=== PATIENT | female | born 1960 | race Caucasian/White ===

== ENCOUNTER → 2016-11-29 | Outpatient (CLI) | payer MEDICARE ==
[~2016-11-29] MED LIST: DULOXETINE HCL60 MG PO; NEURONTIN300 MG PO; SUMATRIPTAN SUC50 M1 PO
== END | disposition home or self-care (01) ==
LOC: MAMMO 08:51
DX: N63 Unspecified lump in breast (principal)

== ENCOUNTER → 2016-12-20 | Outpatient (CLI) | payer MEDICARE | END | disposition home or self-care (01) | LOC: RAD 10:47 | DX: M79.672 Pain in left foot (principal); M79.671 Pain in right foot ==

== ENCOUNTER 2017-01-29 21:26 | Inpatient (IN) | payer MEDICARE ==
[~2017-01-29] VITALS: Ht 165.1 cm; Wt 86.0 kg
[2017-01-29] VITALS (8 sets, daily range): BP systolic 109–188; BP diastolic 66–100
[2017-01-29] MEDS ORDERED: ATENOL PO (21:36)
[2017-01-29 21:48] LABS: BASO % 0.3 % (0.0-1.0); EOS # 0.1 10*3/uL (0.0-0.4); EOS % 1.8 % (1.0-4.0); HEMATOCRIT 41.9 % (37.0-47.0); HEMOGLOBIN 14.2 g/dl (12.0-16.0); LYMPH # 2.1 10*3/uL (1.3-4.4); LYMPH % 31.2 % (27.0-41.0); MEAN CELL VOLUME 81.4 fl (81.0-99.0); MEAN CORPUSCULAR HGB 27.6 pg (27.0-31.0); MEAN CORPUSCULAR HGB CONC 33.9 g/dl (33.0-37.0); MEAN PLATELET VOLUME 10.4 fl (9.6-12.3); MONO # 0.5 10*3/uL (0.1-1.0); MONO % 6.9 % (3.0-9.0); NEUT % 59.7 % (47.0-73.0); PLATELET COUNT AUTOMATED 255 10*3/uL (130-400); RED BLOOD COUNT 5.15 10*6/uL (4.10-5.10); RED CELL DISTRI WIDTH 12.6 % (0-14.5); WHITE BLOOD COUNT 6.7 10*3/uL (4.8-10.8)
[2017-01-29 22:21] LABS: PROTHROMBIN TIME 10.9 SECONDS (9.0-12.4)
[2017-01-29 22:29] LABS: ALBUMIN 3.6 gm/dl (3.1-4.5); ALKALINE PHOSPHATASE 78 U/L (45-117); BILIRUBIN, TOTAL 0.3 mg/dl (0.2-1.0); BUN 14 mg/dl (7-24); CARBON DIOXIDE 27 mmol/L (21-32); CHLORIDE 109 mmol/L (98-107); EST GLOM FILT AFRICAN AMERICAN > 60 ml/min; GLUCOSE 149 mg/dL (65-99); MAGNESIUM 1.7 mg/dL (1.5-2.1); SGOT/AST 16 IU/L (3-35); SGPT/ALT 25 U/L (12-78); SODIUM 144 mmol/L (136-145); TOTAL PROTEIN 6.9 gm/dL (6.4-8.2)
[2017-01-29 22:30] LABS: TROPONIN I < 0.015 ng/ml (<0.045)
[2017-01-29 23:31] LABS: HEMOGLOBIN A1c 5.9 % (4.8-5.6)
[2017-01-30] VITALS: BP 129/78
[2017-01-30 00:30] VITALS: BP 154/84
[2017-01-30] MEDS ORDERED: NEXIUM40 MG PO (01:13)
[2017-01-30] MEDS ORDERED: VITAMIN D400 I1 PO (01:14)
[2017-01-30] MEDS ORDERED: ATENOLOL25 MG PO (01:15)
[2017-01-30] MEDS ORDERED: VITAMIN D32000 UNIT PO (01:18)
[2017-01-30 03:46] LABS: BASO % 0.4 % (0.0-1.0); EOS # 0.1 10*3/uL (0.0-0.4); EOS % 1.6 % (1.0-4.0); HEMATOCRIT 39.3 % (37.0-47.0); LYMPH # 1.5 10*3/uL (1.3-4.4); MEAN CELL VOLUME 82.6 fl (81.0-99.0); MEAN CORPUSCULAR HGB 27.3 pg (27.0-31.0); MEAN CORPUSCULAR HGB CONC 33.1 g/dl (33.0-37.0); MEAN PLATELET VOLUME 10.2 fl (9.6-12.3); MONO # 0.4 10*3/uL (0.1-1.0); MONO % 7.4 % (3.0-9.0); NEUT % 60.4 % (47.0-73.0); PLATELET COUNT AUTOMATED 190 10*3/uL (130-400); RED BLOOD COUNT 4.76 10*6/uL (4.10-5.10); RED CELL DISTRI WIDTH 12.7 % (0-14.5)
[2017-01-30 03:59] LABS: BUN 21 mg/dl (7-24); CARBON DIOXIDE 28 mmol/L (21-32); CHLORIDE 110 mmol/L (98-107); EST GLOM FILT AFRICAN AMERICAN > 60 ml/min; GLUCOSE 106 mg/dL (65-99); MAGNESIUM 1.8 mg/dL (1.5-2.1); POTASSIUM 4.6 mmol/L (3.5-5.1); SODIUM 145 mmol/L (136-145)
[2017-01-30 04:03] LABS: CHOLESTEROL 182 mg/dL (<200); FREE T4 1.12 ng/dl (0.76-1.46); HDL CHOLESTEROL 59 mg/dl (40-60); LDL CHOLESTEROL 110 mg/dL (9-159); PHOSPHOROUS 4.4 mg/dL (2.5-4.9); TRIGLYCERIDES 64 mg/dl (<150); VLDL CHOLESTEROL 13 mg/dL (6-40)
[2017-01-30 04:06] LABS: HEMOGLOBIN A1c 6.1 % (4.8-5.6)
[2017-01-30 07:59] LABS: VITAMIN D, 25-HYDROXY 34.1 ng/mL (30-100)
[2017-01-30 08:00] VITALS: BP 140/80
[2017-01-30 08:00] LABS: FOLIC ACID 16.81 ng/mL (>5.38)
[2017-01-30 12:00] VITALS: BP 134/67
[2017-01-30 16:00] VITALS: BP 122/69
[2017-01-30 20:00] VITALS: BP 118/82
[2017-01-31] VITALS: BP 124/78
[2017-01-31 04:00] VITALS: BP 118/76
[2017-01-31 08:00] VITALS: BP 110/58
[2017-01-31 12:00] VITALS: BP 108/64
[2017-01-31 16:00] VITALS: BP 156/82
== END 2017-01-31 17:53 | disposition home or self-care (01) | DRG 392 ==
LOC: ED 21:26 → 4E 01-30 00:09 → EDHOLD 01-30 00:09 → 4E 01-30 00:16
PROVIDERS: Emergency Medicine Emergency Medical Services; Internal Medicine
DX: K21.9 Gastro-esophageal reflux disease without esophagitis (principal); K76.89 Other specified diseases of liver; I10 Essential (primary) hypertension; R07.9 Chest pain, unspecified; R73.9 Hyperglycemia, unspecified; R73.03 Prediabetes; E66.9 Obesity, unspecified; R91.1 Solitary pulmonary nodule; Z87.891 Personal history of nicotine dependence; Z82.49 Family history of ischemic heart disease and other diseases of the circulatory system; Z88.2 Allergy status to sulfonamides; Z79.899 Other long term (current) drug therapy; Z68.32 Body mass index [BMI] 32.0-32.9, adult

== ENCOUNTER → 2017-03-16 | Day surgery (SDC) | payer MEDICARE ==
[~2017-03-16] VITALS: Ht 167.6 cm; Wt 81.6 kg
[~2017-03-16] MED LIST changes: +ATENOL PO; +ATENOLOL25 MG PO; +NEXIUM40 MG PO; +VITAMIN D32000 UNIT PO; +VITAMIN D400 I1 PO
--- NOTE | ~2017-03-16 | O ---
[place], [place] OPERATIVE NOTE NAME: MARY LOU REYNOSO UNIT #: [id number] ROOM: DOCTOR: JAMES STEVENS MD BIRTHDATE: [birth year] DOS: 03/16/2017 INDICATIONS: This is a 57-year-old patient who presented with chief complaint of noncardiac chest pain status post cardiac workup negative, stress test negative. ALLERGIES: SULFA. FAMILY HISTORY: Noncontributory. PAST SURGICAL HISTORY: Bilateral podiatric management C-sections. PAST MEDICAL HISTORY: Bipolar, migraine, heartburn, dyspepsia, atypical chest pain. SOCIAL HISTORY: Nonsmoker, nonalcohol consumer. PROCEDURE: Todays' procedure part of investigation is panendoscopy plus biopsy. PREMEDICATION: Versed and Diprivan. SCOPE: Olympus forward-viewing gastroscope Q10 video. REPORT: After putting the patient in the left lateral position and after application of lubricant to the scope, the scope was introduced; thereafter, under direct visualization, advanced through the length of esophagus without difficulty. Irregular Z line was identified. Biopsies obtained ruling out short segment Lee esophagus, hiatal hernia approximately 3.5 cm, which was moderate in size was noticed, photographed. Gastric pouch was entered. Multiple small erosions in antrum was identified, photographed. Biopsy was obtained. Duodenal bulb, second and third part within normal limits. The patient extubated, tolerated procedure well. IMPRESSION: Multiple gastric erosions, moderate sized hiatal hernia, irregular Z-line status post biopsy. PLAN AND DISCUSSION: We are going to continue with her Protonix 40 mg daily, Gaviscon 2 tablets at bedtime, elevation of the head of the bed 6 inches all time. Abstinence from carbonated soda. Otherwise, this patient may require ____ and termination of her atypical chest pain. Thank you very much indeed for your kind referral. [place], [place] OPERATIVE NOTE NAME: MARY LOU REYNOSO UNIT #: [id number] ROOM: DOCTOR: JAMES STEVENS MD BIRTHDATE: [birth year] JAMES STEVENS MD CM:PAT:OPERATIVE NOTE [id number] ADELAIDA STEVENS MD 03/16/17 1818 interface
[2017-03-16 13:58] VITALS: BP 160/76
[2017-03-16 14:46] VITALS: BP 116/75
[2017-03-16 15:01] VITALS: BP 116/75
[2017-03-16 15:16] VITALS: BP 119/71
== END | disposition home or self-care (01) ==
LOC: SDC 03-12 11:00
DX: K29.50 Unspecified chronic gastritis without bleeding (principal); K21.0 Gastro-esophageal reflux disease with esophagitis; K44.9 Diaphragmatic hernia without obstruction or gangrene; Z88.2 Allergy status to sulfonamides; G43.909 Migraine, unspecified, not intractable, without status migrainosus; F31.9 Bipolar disorder, unspecified; Z98.890 Other specified postprocedural states; F41.0 Panic disorder [episodic paroxysmal anxiety]; M79.7 Fibromyalgia; Z87.891 Personal history of nicotine dependence

== ENCOUNTER → 2017-04-19 | Outpatient (CLI) | payer MEDICARE ==
[2017-04-19 09:24] LABS: CREATININE 0.72 mg/dL (0.55-1.02)
== END | disposition home or self-care (01) ==
LOC: LAB 00:40 → CT 09:00 → LAB 09:00
PROVIDERS: Radiology Diagnostic Radiology
DX: R10.84 Generalized abdominal pain (principal); K44.9 Diaphragmatic hernia without obstruction or gangrene; R11.0 Nausea; K76.0 Fatty (change of) liver, not elsewhere classified

== ENCOUNTER → 2017-12-04 | Outpatient (CLI) | payer MEDICARE | END | disposition home or self-care (01) | LOC: RAD 14:10 | DX: M54.5 Low back pain (principal) ==

== ENCOUNTER 2019-04-18 17:16 | Inpatient (IN) | payer MEDICARE, MEDICAID ==
[~2019-04-18] VITALS: Ht 167.6 cm; Wt 82.1 kg
[2019-04-18 17:33] LABS: BASO % 0.5 % (0.0-1.0); EOS # 0.2 10*3/uL (0.0-0.4); EOS % 3.4 % (1.0-4.0); HEMATOCRIT 43.2 % (37.0-47.0); HEMOGLOBIN 14.8 g/dl (12.0-16.0); LYMPH # 2.1 10*3/uL (1.3-4.4); LYMPH % 34.5 % (27.0-41.0); MEAN CELL VOLUME 83.1 fl (81.0-99.0); MEAN CORPUSCULAR HGB 28.5 pg (27.0-31.0); MEAN CORPUSCULAR HGB CONC 34.3 g/dl (33.0-37.0); MEAN PLATELET VOLUME 10.1 fl (9.6-12.3); MONO # 0.5 10*3/uL (0.1-1.0); MONO % 7.5 % (3.0-9.0); NEUT # 3.3 10*3/uL (2.3-7.9); NEUT % 53.8 % (47.0-73.0); PLATELET COUNT AUTOMATED 264 10*3/uL (130-400); RED CELL DISTRI WIDTH 14.4 % (0-14.5); WHITE BLOOD COUNT 6.1 10*3/uL (4.8-10.8)
[2019-04-18 17:44] LABS: ACT PARTIAL THROMBO TIME 23.6 SECONDS (20.0-32.1)
[2019-04-18 17:59] LABS: ALKALINE PHOSPHATASE 77 U/L (45-117); BUN 16 mg/dl (7-24); CHLORIDE 103 mmol/L (98-107); CREATININE 0.84 mg/dL (0.55-1.02); POTASSIUM 2.9 mmol/L (3.5-5.1); SGOT/AST 23 IU/L (3-35); SGPT/ALT 31 U/L (12-78); SODIUM 140 mmol/L (136-145); TOTAL PROTEIN 7.2 gm/dL (6.4-8.2)
[2019-04-18 18:00] LABS: TROPONIN I < 0.015 ng/ml (<0.045)
[2019-04-18 18:09] VITALS: BP 104/68
--- NOTE | 2019-04-18 19:50 | NUR ---
NOTIFIED MAO STEELE OF FAMILY'S REQUEST FOR PATIENT TO HAVE PAIN MEDICATION.
[2019-04-18 20:00] VITALS: BP 110/64
[2019-04-18] MEDS ORDERED: PANTOPRAZOLE SO40 MG PO (20:22)
[2019-04-18] MEDS ORDERED: POTASSIUM CHLO10 MEQ PO (20:23)
[2019-04-18] MEDS ORDERED: ALLOPURINOL100 MG PO (20:23)
[2019-04-18] MEDS ORDERED: AMITRIPTYLINE25 MG PO (20:23)
[2019-04-18] MEDS ORDERED: ESCITALOPRAM OX10 MG PO (20:23)
--- NOTE | 2019-04-18 20:24 | NUR ---
MEDICATION RECONCILLIATION COMPLETED WITH PATIENT AT THE BEDSIDE
[2019-04-19] VITALS: BP 121/79
[2019-04-19 02:41] VITALS: BP 107/59
[2019-04-19 05:57] LABS: ALBUMIN 3.4 gm/dl (3.1-4.5); ALKALINE PHOSPHATASE 69 U/L (45-117); BUN 20 mg/dl (7-24); CHLORIDE 104 mmol/L (98-107); CHOLESTEROL 192 mg/dL (<200); CREATININE 0.85 mg/dL (0.55-1.02); FREE T4 1.25 ng/dl (0.76-1.46); HDL CHOLESTEROL 48 mg/dl (40-60); LDL CHOLESTEROL 110 mg/dL (9-159); PHOSPHOROUS 3.7 mg/dL (2.5-4.9); SGOT/AST 14 IU/L (3-35); SGPT/ALT 28 U/L (12-78); SODIUM 140 mmol/L (136-145); TOTAL PROTEIN 6.3 gm/dL (6.4-8.2); TRIGLYCERIDES 171 mg/dl (<150); VLDL CHOLESTEROL 34 mg/dL (6-40)
[2019-04-19 06:15] LABS: BASO % 0.4 % (0.0-1.0); EOS # 0.2 10*3/uL (0.0-0.4); EOS % 4.4 % (1.0-4.0); HEMATOCRIT 38.4 % (37.0-47.0); HEMOGLOBIN 13.3 g/dl (12.0-16.0); LYMPH # 1.8 10*3/uL (1.3-4.4); LYMPH % 37.1 % (27.0-41.0); MEAN CELL VOLUME 83.8 fl (81.0-99.0); MEAN CORPUSCULAR HGB CONC 34.6 g/dl (33.0-37.0); MEAN PLATELET VOLUME 11.3 fl (9.6-12.3); MONO # 0.5 10*3/uL (0.1-1.0); MONO % 10.1 % (3.0-9.0); NEUT # 2.3 10*3/uL (2.3-7.9); NEUT % 47.8 % (47.0-73.0); PLATELET COUNT AUTOMATED 226 10*3/uL (130-400); RED BLOOD COUNT 4.58 10*6/uL (4.10-5.10); RED CELL DISTRI WIDTH 14.6 % (0-14.5); WHITE BLOOD COUNT 4.7 10*3/uL (4.8-10.8)
[2019-04-19 06:30] VITALS: BP 114/71
--- NOTE | 2019-04-19 06:30 | NUR ---
A 59, admitted to 4E, under the services of LAURIE Longo DO with a diagnosis of CHEST PAIN. Chief complaint is CHEST PAIN. Patient arrived via ambulatory from ER. Monitor applied. Initial assessment completed. Vital signs taken and recorded. LAURIE LONGO DO notified of admission to the unit. Orders received. See assessment for past medical history, medications and allergies. Patient and/or family oriented to unit. [facility] visitation policy reviewed. Clothing/patient valuable form completed. SABRINA MAHER
[2019-04-19 07:29] LABS: VITAMIN D, 25-HYDROXY 32.2 ng/mL (30-100)
[2019-04-19 08:00] VITALS: BP 110/68
--- NOTE | 2019-04-19 08:12 | NUR ---
PATIENT ALERT AND ORIENTED, C/O PAIN TO UPPER CHEST RADIATES TO UPPER BACK AREA. RATED 7/10 ON PAIN SCALE. MEDICATED WITH [facility] PER ORDERS. CESAR DAMON / AMIRA PICHARDON CLINICAL INSTRUCTOR,
--- NOTE | 2019-04-19 10:13 | NUR ---
NOTIFIED DR PETTY OF NEW CONSULT FOR CHEST PAIN.
[2019-04-19 12:00] VITALS: BP 100/55
--- NOTE | 2019-04-19 12:00 | NUR ---
PT VOICED RELIEF FROM [facility]. RESTING COMFORTABLY.
[2019-04-19] MEDS ORDERED: LIPITOR10 MG PO (14:10)
--- NOTE | 2019-04-19 15:43 | NUR ---
Discharge instructions reviewed with patient/family. Patient receptive and verbalizes understanding. Follow-up care arranged. Written instructions given to patient/family. SABRINA MAHER
== END 2019-04-19 15:43 | disposition home or self-care (01) | DRG 313 ==
LOC: ED 17:16 → EDHOLD 18:41 → 4E 04-19 06:02
PROVIDERS: Family Medicine; Internal Medicine; ADMIT Emergency Medicine
DX: R07.89 Other chest pain (principal); E87.6 Hypokalemia; I10 Essential (primary) hypertension; M54.9 Dorsalgia, unspecified; M79.7 Fibromyalgia; G89.29 Other chronic pain; K21.9 Gastro-esophageal reflux disease without esophagitis; E66.9 Obesity, unspecified; K44.9 Diaphragmatic hernia without obstruction or gangrene; F17.210 Nicotine dependence, cigarettes, uncomplicated; F41.9 Anxiety disorder, unspecified; F32.9 Major depressive disorder, single episode, unspecified; Z90.49 Acquired absence of other specified parts of digestive tract; Z88.2 Allergy status to sulfonamides; Z82.49 Family history of ischemic heart disease and other diseases of the circulatory system; Z98.891 History of uterine scar from previous surgery; Z79.899 Other long term (current) drug therapy; Z71.6 Tobacco abuse counseling; Z68.29 Body mass index [BMI] 29.0-29.9, adult

== ENCOUNTER → 2019-04-23 | Outpatient (CLI) | payer MEDICARE ==
[~2019-04-23] MED LIST changes: +ALLOPURINOL100 MG PO; +AMITRIPTYLINE25 MG PO; +ESCITALOPRAM OX10 MG PO; +LIPITOR10 MG PO; +PANTOPRAZOLE SO40 MG PO; +POTASSIUM CHLO10 MEQ PO
--- NOTE | ~2019-04-23 | ST ---
[place], [place] EXERCISE STRESS TEST REPORT [id number] UNIT #: [id number] ROOM: DOCTOR: MALINDA GEE,CHRISTOPHER BIRTHDATE: [birth year] DOS: REASON FOR TEST: Chest pain. PHYSICAL EXAMINATION NECK: Supple. LUNGS: Clear anteriorly. HEART: Regular rhythm. PROTOCOL: Lexiscan protocol. Maximum heart rate 98, peak blood pressure 132/68. SYMPTOMS: The patient is chest pain free. EKG is nonischemic. CONCLUSION: Clinically, the patient is chest pain free. EKG is nonischemic. POST-STRESS COMPLICATIONS: None. The patient received a total of 0.4 mg Lexiscan. COMMENT: The patient had resting chest pain of 5/10, which was unchanged during Lexiscan infusion. CHRISTOPHER PETTY MD CM:STRESS:EXERCISE STRESS TEST REPORT [id number] CHRISTOPHER PETTY MD
--- NOTE | 2019-04-23 10:20 | NUR ---
INFORMED CONSENT OBTAINED FOR LEXISCAN STRESS TEST WITH DR. PETTY. RESTING EKG NSR WITH A HT RT OF 62, AND A BP OF 132/68. POX 99% VIA RA WITH CLEAR BREATH SOUNDS. COMPLETED ONE MINUTE OF A LEXISCAN PROTOCOL RECEIVING LEXISCAN 0.4 MG OVER 10 SECONDS. DEVELOPED AN "ODD" FEELING THAT WAS RELIEVED IN RECOVERY. HAD A PEAK HT RT OF 82, WITH A BP OF 128/72. LAST RECOVERY HT RT OF 86, AND A BP OF 130/70. AWAITING NUCLEAR IMAGING IN STABLE CONDITION.
== END | disposition home or self-care (01) ==
LOC: CARD 00:38
DX: R09.89 Other specified symptoms and signs involving the circulatory and respiratory systems (principal); R53.81 Other malaise